=== PATIENT | female | born 1985 | race Caucasian/White ===

== ENCOUNTER 2018-01-17 23:41 | Emergency (ER) | payer OTHER ==
[2018-01-18] MEDS: HYDROCODONE/APAP (5/325) TAB PO ×2 (03:55→04:00)
== END 2018-01-18 04:55 | disposition home or self-care (01) ==
LOC: FTE 23:41
DX: S50.02XA Contusion of left elbow, initial encounter (principal); S39.92XA Unspecified injury of lower back, initial encounter; W18.39XA Other fall on same level, initial encounter; Y92.9 Unspecified place or not applicable
CPT/HCPCS: 72100; 73080-LT; 81025; 99284-25